=== PATIENT | female | born 1995 | race Caucasian/White ===

== ENCOUNTER 2023-07-04 07:13 | Inpatient (IN) | payer BC ==
[~2023-07-04] VITALS: Ht 162.6 cm; Wt 77.6 kg
[2023-07-06] MEDS ORDERED: IBU800 MG PO (11:49)
[2023-07-06] MEDS ORDERED: COLACE100 MG PO (11:49)
== END 2023-07-06 13:15 | disposition home or self-care (01) | DRG 807 ==
LOC: OB/GYN 07:13 → LDR 07:13 → OB/GYN 07-05 05:47
PROVIDERS: ADMIT Student in an Organized Health Care Education/Training Program; ATTEND Student in an Organized Health Care Education/Training Program
PROC: 10E0XZZ Delivery of Products of Conception, External Approach (ICD-10-PCS; principal; 2023-07-04)
PROC: 0KQM0ZZ Repair Perineum Muscle, Open Approach (ICD-10-PCS; 2023-07-04)
PROC: 4A1HXCZ Monitoring of Products of Conception, Cardiac Rate, External Approach (ICD-10-PCS; 2023-07-04)
DX: O70.1 Second degree perineal laceration during delivery (principal); Z37.0 Single live birth; Z3A.39 39 weeks gestation of pregnancy; Z20.822 Contact with and (suspected) exposure to COVID-19